=== PATIENT | male | born 1955 | race Two or more races ===

== ENCOUNTER 2018-11-16 17:50 | Inpatient (IN) | payer MEDICARE, OTHER | END 2018-11-21 17:51 | disposition home or self-care (01) | LOC: ER 17:50 → TELE 21:14 → TELE-WESTW 22:51 | PROC: 30233N1 Transfusion of Nonautologous Red Blood Cells into Peripheral Vein, Percutaneous Approach (ICD-10-PCS; principal; ~2018-11-16) | PROC: 30233R1 Transfusion of Nonautologous Platelets into Peripheral Vein, Percutaneous Approach (ICD-10-PCS; ~2018-11-16) | DX: C17.9 Malignant neoplasm of small intestine, unspecified (principal); D61.810 Antineoplastic chemotherapy induced pancytopenia; K56.691 Other complete intestinal obstruction; K92.2 Gastrointestinal hemorrhage, unspecified; T86.12 Kidney transplant failure; C78.7 Secondary malignant neoplasm of liver and intrahepatic bile duct; T45.1X5A Adverse effect of antineoplastic and immunosuppressive drugs, initial encounter; N18.9 Chronic kidney disease, unspecified ==